=== PATIENT | female | born 1975 | race Two or more races ===

== ENCOUNTER 2020-07-31 05:55 | Day surgery (SDC) | payer OTHER | END 2020-07-31 10:50 | disposition home or self-care (01) | LOC: AMB-ENDOS 05:55 | PROVIDERS: ATTEND Surgery | DX: K29.50 Unspecified chronic gastritis without bleeding (principal); K44.9 Diaphragmatic hernia without obstruction or gangrene; Z20.822 Contact with and (suspected) exposure to COVID-19 ==

== ENCOUNTER 2020-08-25 08:19 | Outpatient (CLI) | payer OTHER | END 2020-08-25 08:31 | disposition home or self-care (01) | LOC: LAB 08:19 | PROVIDERS: ATTEND Surgery | DX: R10.13 Epigastric pain (principal); E56.8 Deficiency of other vitamins; E66.01 Morbid (severe) obesity due to excess calories; R19.8 Other specified symptoms and signs involving the digestive system and abdomen ==

== ENCOUNTER 2020-11-23 11:05 | Emergency (ER) | payer OTHER ==
[~2020-11-23] VITALS: Ht 154.9 cm; Wt 86.2 kg
[2020-11-23] MEDS ORDERED: COZAAR100 MG PO (11:13)
== END 2020-11-23 11:38 | disposition home or self-care (01) ==
LOC: ER 11:05
DX: M25.512 Pain in left shoulder (principal); Z98.890 Other specified postprocedural states; I10 Essential (primary) hypertension

== ENCOUNTER 2020-12-26 06:21 | Outpatient (CLI) | payer OTHER ==
[~2020-12-26 06:21] MED LIST: COZAAR100 MG PO
== END 2020-12-26 06:22 | disposition home or self-care (01) ==
LOC: LAB 06:21
DX: Z98.84 Bariatric surgery status (principal)

== ENCOUNTER → 2021-03-16 06:09 | Outpatient (CLI) | payer OTHER | END | disposition home or self-care (01) | LOC: LAB 06:09 | DX: I10 Essential (primary) hypertension (principal) ==

== ENCOUNTER 2021-05-27 06:38 | Outpatient (CLI) | payer OTHER | END 2021-05-27 06:44 | disposition home or self-care (01) | LOC: LAB 06:38 | DX: D50.9 Iron deficiency anemia, unspecified (principal); I10 Essential (primary) hypertension ==

== ENCOUNTER 2021-08-21 07:17 | Emergency (ER) | payer OTHER ==
[~2021-08-21] VITALS: Ht 154.9 cm; Wt 67.6 kg
[2021-08-21] MEDS ORDERED: LOSARTAN-HCTZ1 EACH PO (08:01)
== END 2021-08-21 10:29 | disposition home or self-care (01) ==
LOC: ER 07:17
DX: M25.511 Pain in right shoulder (principal); I10 Essential (primary) hypertension; Z98.84 Bariatric surgery status

== ENCOUNTER 2021-11-03 06:32 | Outpatient (CLI) | payer OTHER ==
[~2021-11-03 06:32] MED LIST changes: +LOSARTAN-HCTZ1 EACH PO
== END 2021-11-03 06:34 | disposition home or self-care (01) ==
LOC: LAB 06:32
PROVIDERS: ATTEND Internal Medicine
DX: I10 Essential (primary) hypertension (principal)

== ENCOUNTER → 2021-11-24 | Outpatient (CLI) | payer OTHER | END | disposition home or self-care (01) | LOC: SONOGRAMA 13:44 | PROVIDERS: ATTEND Obstetrics & Gynecology Gynecology | DX: N64.59 Other signs and symptoms in breast (principal); R10.2 Pelvic and perineal pain ==

== ENCOUNTER 2022-01-04 11:03 | Emergency (ER) | payer OTHER ==
[~2022-01-04] VITALS: Ht 154.9 cm; Wt 65.8 kg
[2022-01-04] MEDS ORDERED: MUPIROCIN1 G1 TOP (13:11)
[2022-01-04] MEDS ORDERED: AMOX1TAB5 PO (13:11)
== END 2022-01-04 13:17 | disposition home or self-care (01) ==
LOC: ER 11:03
DX: L03.90 Cellulitis, unspecified (principal)

== ENCOUNTER 2022-03-10 07:01 | Outpatient (CLI) | payer OTHER ==
[~2022-03-10 07:01] MED LIST changes: +AMOX1TAB5 PO; +MUPIROCIN1 G1 TOP
== END 2022-03-10 07:07 | disposition home or self-care (01) ==
LOC: LAB 07:01
DX: D69.9 Hemorrhagic condition, unspecified (principal); K95.81 Infection due to other bariatric procedure

== ENCOUNTER 2022-04-08 13:48 | Outpatient (CLI) | payer OTHER | END 2022-04-08 14:09 | disposition home or self-care (01) | LOC: TOM 13:48 | PROVIDERS: ATTEND Surgery | DX: K43.2 Incisional hernia without obstruction or gangrene (principal); K42.9 Umbilical hernia without obstruction or gangrene ==

== ENCOUNTER 2022-04-24 09:19 | Outpatient (CLI) | payer OTHER | END 2022-04-24 09:24 | disposition home or self-care (01) | LOC: LAB 09:19 | PROVIDERS: ATTEND Internal Medicine | DX: D50.8 Other iron deficiency anemias (principal); I10 Essential (primary) hypertension ==

== ENCOUNTER 2022-06-26 07:48 | Outpatient (CLI) | payer OTHER ==
[2022-06-28] MEDS ORDERED: IRON236 MG PO (09:19)
[2022-06-28] MEDS ORDERED: MULTIPLE VITAM1 EAC2 PO (09:20)
== END 2022-06-26 07:54 | disposition home or self-care (01) ==
LOC: LAB 07:48
PROVIDERS: ATTEND Surgery
DX: K80.10 Calculus of gallbladder with chronic cholecystitis without obstruction (principal); I10 Essential (primary) hypertension; R10.13 Epigastric pain

== ENCOUNTER 2022-06-30 05:23 | Day surgery (SDC) | payer OTHER ==
[~2022-06-30] VITALS: Ht 154.9 cm; Wt 63.5 kg
[~2022-06-30 05:23] MED LIST changes: +IRON236 MG PO; +MULTIPLE VITAM1 EAC2 PO
[2022-06-30] MEDS ORDERED: PERCOCET 5-3251 EACH PO (09:54)
[2022-06-30] MEDS ORDERED: SURFAK240 M1 PO (09:55)
[2022-06-30] MEDS ORDERED: MIRALAX17 GM PO (09:55)
== END 2022-06-30 11:30 | disposition home or self-care (01) ==
LOC: CIR.AMB 05:23
PROVIDERS: ATTEND Surgery
DX: K80.10 Calculus of gallbladder with chronic cholecystitis without obstruction (principal); K42.9 Umbilical hernia without obstruction or gangrene; K43.2 Incisional hernia without obstruction or gangrene; Z20.822 Contact with and (suspected) exposure to COVID-19; I10 Essential (primary) hypertension; D64.9 Anemia, unspecified

== ENCOUNTER → 2022-07-24 08:23 | Outpatient (CLI) | payer OTHER ==
[~2022-07-24 08:23] MED LIST changes: +MIRALAX17 GM PO; +PERCOCET 5-3251 EACH PO; +SURFAK240 M1 PO
== END | disposition home or self-care (01) ==
LOC: LAB 08:23
PROVIDERS: ATTEND Family Medicine
DX: D64.9 Anemia, unspecified (principal); N39.0 Urinary tract infection, site not specified; I10 Essential (primary) hypertension; J11.89 Influenza due to unidentified influenza virus with other manifestations; E55.9 Vitamin D deficiency, unspecified; E87.8 Other disorders of electrolyte and fluid balance, not elsewhere classified; D50.9 Iron deficiency anemia, unspecified